=== PATIENT | female | born 1965 | race African-American/Black ===

== ENCOUNTER 2018-07-17 15:42 | Emergency (ER) | payer MEDICARE, MEDICAID ==
[~2018-07-17] VITALS: Ht 167.6 cm; Wt 76.0 kg
[2018-07-17] MEDS ORDERED: IBUPROFEN 600MG TABLET PO ONE (18:00)
[2018-07-17] MEDS ORDERED: ACETAMINOPHEN 325MG TABLET PO ONE (19:45)
[2018-07-17 19:55] VITALS: BP 129/65
== END 2018-07-17 19:55 | disposition home or self-care (01) ==
LOC: ER 15:42
DX: R51 Headache (principal); M54.2 Cervicalgia; M19.90 Unspecified osteoarthritis, unspecified site; J45.909 Unspecified asthma, uncomplicated; F32.9 Major depressive disorder, single episode, unspecified; F41.9 Anxiety disorder, unspecified; F17.200 Nicotine dependence, unspecified, uncomplicated; R03.0 Elevated blood-pressure reading, without diagnosis of hypertension; W20.8XXA Other cause of strike by thrown, projected or falling object, initial encounter; Y93.89 Activity, other specified; Y92.018 Other place in single-family (private) house as the place of occurrence of the external cause
CPT/HCPCS: 72100; 72128; 99284